=== PATIENT | female | born 1960 | race Caucasian/White ===

== ENCOUNTER 2017-02-03 13:02 | Emergency (ER) | payer BC ==
[2010-09-27 07:17] VITALS: BMI 26.1
[2017-02-03 13:57] LABS: BASOPHILS 0.1 % (0-2); EOSINOPHILS 0 % (0-7); HEMATOCRIT 35.6 % (36.0-48.0); IMMATURE GRANULOCYTES 0.4 % (0-5); LYMPHOCYTES 5.4 % (15-50); MCH 24.7 pg (26.0-34.0); MCHC 30.9 g/dL (31.0-37.0); MEAN PLATELET VOLUME 10.1 fL (7.4-10.4); MONOCYTES 3.4 % (2-11); NEUTROPHILS 90.7 % (40-80); PLATELET COUNT 368 10x3/uL (130-400); RBC 4.45 10x6/uL (4.00-5.40); RDW 16.3 % (11.5-14.5)
[2017-02-03 14:21] LABS: ALBUMIN 3.9 g/dL (3.4-5.0); ANION GAP 17.5 mmol/L (8-16); BILIRUBIN - TOTAL 0.11 mg/dL (0.2-1.3); CALCIUM 9.7 mg/dL (8.5-10.1); CARBON DIOXIDE 20.9 mmol/L (21.0-32.0); CREATININE - SERUM 1.3 mg/dL (0.6-1.3); POTASSIUM - SERUM 3.4 mmol/L (3.5-5.1); PROTEIN - SERUM 7.2 g/dL (6.4-8.2)
--- NOTE | 2017-02-03 17:28 | NUR ---
ASSESSED RESP STATUS OF PT. SPO2 98% ON RA. BILATERAL EXPIRATORY WHEEZING ANTERIOR REGIONS OF CHEST. C/O SUBJECTIVE TIGHTNESS TO CHEST DURING BREAHTING WILL CONTINUE TO MONITOR NO S/S OF IMMEDIATE RESPIRATORY DISTRESS
== END 2017-02-03 19:46 | disposition home or self-care (01) ==
LOC: D.ER 13:02
PROVIDERS: Emergency Medicine
DX: R06.00 Dyspnea, unspecified (principal); J45.901 Unspecified asthma with (acute) exacerbation

== ENCOUNTER 2020-01-03 09:15 | Outpatient (CLI) | payer BC ==
[2010-09-27 07:17] VITALS: BMI 26.1
== END 2020-01-03 10:15 | disposition home or self-care (01) ==
LOC: D.MAMMO 09:15
DX: Z12.31 Encounter for screening mammogram for malignant neoplasm of breast (principal)